=== PATIENT | male | born 1975 | race African-American/Black ===

== ENCOUNTER 2017-08-26 22:00 | Emergency (ER) | payer BC ==
[~2017-08-26] VITALS: Ht 177.8 cm; Wt 79.4 kg
[~2017-08-26 22:00] MED LIST: BENTYL10 MG PO; FLEXERIL5 MG PO; NAPROSYN500 MG PO; NOHOMEMEDS; TRAMADOL HCL50 MG PO
[2017-08-26] MEDS ORDERED: TESSALON PERLE100 MG PO (23:08)
[2017-08-26] MEDS ORDERED: ZITHROMAX Z-PA250 MG PO (23:08)
[2017-08-26 23:51] VITALS: BP 134/70
== END 2017-08-26 23:51 | disposition home or self-care (01) ==
LOC: EME 22:00
DX: J20.9 Acute bronchitis, unspecified (principal); S39.011A Strain of muscle, fascia and tendon of abdomen, initial encounter; X50.0XXA Overexertion from strenuous movement or load, initial encounter; Y99.0 Civilian activity done for income or pay; F17.200 Nicotine dependence, unspecified, uncomplicated; Z90.79 Acquired absence of other genital organ(s)
CPT/HCPCS: 71046; 99281; 99283